=== PATIENT | male | born 1970 | race Caucasian/White ===

== ENCOUNTER 2017-11-11 07:40 | Emergency (ER) | payer SELFPAY ==
[~2017-11-11] VITALS: Ht 170.2 cm; Wt 70.6 kg
[~2017-11-11 07:40] MED LIST: NO MEDS; NOHOMEMEDS; PEPCID40 MG PO; PREDNISONE20 MG PO
[2017-11-11 08:58] LABS: HEMATOCRIT 43.6 % (38.0-50.0); HEMOGLOBIN 14.9 G/DL (12.5-16.6); MCH 31.8 PG (29.0-34.0); MCHC 34.2 G/DL (30.0-36.0); MCV 93.2 FL (86-99); PLATELET COUNT 128 K/uL (156-360); RBC DIS.WIDTH-SD 41.2 % (39-53); RED BLOOD COUNT 4.68 M/uL (4.00-5.50)
[2017-11-11 09:24] LABS: CHLORIDE 93 mEq/L (99-109); POTASSIUM 4.1 mEq/L (3.7-5.4); SODIUM 133 mEq/L (136-147)
[2017-11-11 09:25] LABS: GLUCOSE 98 mg/dL (70-99)
[2017-11-11 09:29] LABS: CREATININE 0.8 mg/dL (0.6-1.3); GFR ESTIMATE (CALCULATED) > 59 mL/min/ (58.99-99999)
[2017-11-11 09:30] LABS: UREA NITROGEN (BUN) 9 mg/dL (9-23)
[2017-11-11 09:55] LABS: ABS NEUTROPHIL COUNT 6.7; ANISOCYTOSIS 1+; ATYPICAL LYMPHOCYTE 7.9 %; BAND NEUTROPHILS 25.4 % (0-8.0); EOSINOPHIL ABS CT 0; LYMPHOCYTES 5.3 % (15.0-45.0); MICROCYTOSIS 1+; MONOCYTES 3.5 % (0-9.0); PLAT.SUFFICIENCY DECREASED; SEG.NEUTROPHILS 57.9 % (46.0-76.0)
[2017-11-11 10:00] VITALS: BP 148/93
[2017-11-11] MEDS ORDERED: ZITHROMAX Z-PA250 MG PO (10:07)
== END 2017-11-11 10:37 | disposition home or self-care (01) ==
LOC: EME 07:40
PROVIDERS: Physician Assistant
DX: J18.9 Pneumonia, unspecified organism (principal); J84.10 Pulmonary fibrosis, unspecified; F17.200 Nicotine dependence, unspecified, uncomplicated
CPT/HCPCS: 71046; 80048; 85025; 93005; 99281; 99283; 99284